=== PATIENT | female | born 1930 | race Caucasian/White ===

== ENCOUNTER 2017-11-10 10:13 | Day surgery (SDC) | payer MEDICARE, BC ==
[2017-11-06 15:31] VITALS: BMI 23.4
[~2017-11-10 10:13] MED LIST: SODIUM CHLORIDE 0.9% 1,000 ML IV SCH
[2017-11-10 10:35] VITALS: RESP 16; TEMP 98
[2017-11-10 10:52] LABS: INR 2.6 (<1.2); Prothrombin Time 23.2 sec (9.0-12.0)
[2017-11-10 12:26] VITALS: BP 155/80; PULSE 82
--- NOTE | 2017-11-10 15:28 | P.PCN ---
Preoperative Diagnosis: Indication for the procedure: 87-year-old female with recurrent dizzy spells/ syncope, despite dual-chamber pacemaker implant Twelve-lead ECG shows in atrial paced rhythm prolonged OK interval IVCD left bundle branch block Tilt table test report Baseline blood pressure 146/76. His mercury Baseline heart rate is 60 beats a minute patient was tilted upright at an angle of 70 per protocol there was any major drop in blood pressure to 120/72 mmHg and then the blood pressure remained between 110-120 mmHg systolic all the diastolics were unchanged The patient remained asymptomatic throughout the tilt table test When she was laid supine blood pressure increased to 143/77 mmHg Result Orthostatic hypotension syndrome Anesthesia: none Disposition: same day
== END 2017-11-10 12:28 | disposition home or self-care (01) ==
LOC: CATHEP 10:13
PROVIDERS: ATTEND Internal Medicine Clinical Cardiac Electrophysiology
DX: I95.1 Orthostatic hypotension (principal); I44.7 Left bundle-branch block, unspecified
CPT/HCPCS: 85610; 93005; 93660